=== PATIENT | male | born 1960 | race Asian ===

== ENCOUNTER 2016-12-25 20:46 | Emergency (ER) | payer BC, OTHER ==
[~2016-12-25] VITALS: Ht 182.9 cm; Wt 81.6 kg
--- NOTE | 2016-12-25 20:46 | NUR ---
bb ; right sided aching like chest pain since 1430. A/OX4, NO OTHER DISTRESS NOTED. AMBULATORY WITH STEADY GAIT. ON MONITOR AND GOWN. AT BEDSIDE FOR EVAL
--- NOTE | 2016-12-25 21:14 | NUR ---
20G LEFT AC ACCESS, PATENT AND FLUSHING WELL
[2016-12-25 21:16] LABS: BASOPHILS # (AUTO) 0.1 /CMM (0.0-0.2); BASOPHILS % (AUTO) 0.5 % (0.0-2.0); EOSINOPHILS % (AUTO) 0.5 % (0.0-6.0); HEMATOCRIT 39 % (39-51); HEMOGLOBIN 12.9 g/dL (13.5-17.5); LYMPHOCYTES # (AUTO) 3.2 /CMM (0.8-4.8); LYMPHOCYTES % (AUTO) 31.4 % (20.0-44.0); MEAN CORPUSCULAR HEMOGLOBIN 30 PG (26.0-33.0); MEAN CORPUSCULAR HGB CONC 33 g/dl (31.0-36.0); MEAN CORPUSCULAR VOLUME 89 fL (80-96); MONOCYTES # (AUTO) 0.8 /CMM (0.1-1.30); MONOCYTES % (AUTO) 8.1 % (2.0-12.0); NEUTROPHILS % (AUTO) 59.5 % (43.0-81.0); PLATELET COUNT (AUTO) 206 /CMM (150-450); RDW COEFFICIENT OF VARIATION 12.9 (11.5-15.0); RED BLOOD CELL COUNT(AUTO) 4.38 MIL/uL (4.5-6.0); WHITE BLOOD COUNT (AUTO) 10.1 K/uL (4.3-11.0)
[2016-12-25 21:35] LABS: TROPONIN I < 0.017 ng/mL (0.00-0.056)
[2016-12-25 21:40] LABS: INR 0.96 (0.87-1.13); PARTIAL THROMBOPLASTIN TIME 26 SEC (23-34)
[2016-12-25 21:41] LABS: B-TYPE NATRIURETIC PEPTIDE 15 PG/ML (0-125); CALCIUM, SERUM 8.8 mg/dL (8.5-10.1); CARBON DIOXIDE 28 mmol/L (21-32); CHLORIDE 101 mmol/L (98-107); CREATININE 1.1 mg/dL (0.6-1.3); GLUCOSE 254 mg/dL (74-106); POTASSIUM 4.4 mmol/L (3.5-5.1); SODIUM SERUM 137 mmol/L (136-145)
[2016-12-25 21:49] LABS: D-DIMER < 0.19 mg/L(FEU (0.17-0.50)
[2016-12-25 21:51] LABS: UREA NITROGEN, BLOOD 19 mg/dL (7-18)
--- NOTE | 2016-12-25 23:55 | NUR ---
DISCHARGE INSTRUCTIONS PROVIDED. NO CURRENT COMPLAINTS OF CHEST PAIN. IV ACCESS REMOVED AND PRESSURE DSG APPLIED. ALL QUESTIONS ANSWERED.
[2016-12-25 23:57] VITALS: BP 156/96
== END 2016-12-25 23:59 | disposition home or self-care (01) ==
LOC: ER 20:48
DX: R07.89 Other chest pain (principal); E11.9 Type 2 diabetes mellitus without complications
CPT/HCPCS: 36415; 71010; 80048; 82550; 83880; 84484 ×2; 85025; 85378; 85730; 93005 ×2; 99285; A4606; Z7610

== ENCOUNTER 2018-02-08 09:02 | Outpatient (CLI) | payer BC | END 2018-02-08 23:59 | disposition home or self-care (01) | LOC: US 09:02 | PROVIDERS: ATTEND Family Medicine | DX: N28.89 Other specified disorders of kidney and ureter (principal); E11.21 Type 2 diabetes mellitus with diabetic nephropathy; E11.22 Type 2 diabetes mellitus with diabetic chronic kidney disease; N18.9 Chronic kidney disease, unspecified | CPT/HCPCS: 76770-TC ==

== ENCOUNTER 2018-04-17 08:41 | Outpatient (CLI) | payer BC ==
[2018-04-17 09:30] LABS: BASOPHILS % (AUTO) 0.7 % (0.0-2.0); EOSINOPHILS % (AUTO) 0.9 % (0.0-6.0); HEMATOCRIT 40 % (39-51); HEMOGLOBIN 13.4 g/dL (13.5-17.5); LYMPHOCYTES # (AUTO) 2.9 /CMM (0.8-4.8); LYMPHOCYTES % (AUTO) 43.7 % (20.0-44.0); MEAN CORPUSCULAR HGB CONC 33 g/dl (31.0-36.0); MEAN CORPUSCULAR VOLUME 91 fL (80-96); MONOCYTES # (AUTO) 0.5 /CMM (0.1-1.30); MONOCYTES % (AUTO) 7.9 % (2.0-12.0); NEUTROPHILS # (AUTO) 3.1 /CMM (1.8-8.9); NEUTROPHILS % (AUTO) 46.8 % (43.0-81.0); PLATELET COUNT (AUTO) 219 /CMM (150-450); RED BLOOD CELL COUNT(AUTO) 4.42 MIL/uL (4.5-6.0); WHITE BLOOD COUNT (AUTO) 6.7 K/uL (4.3-11.0)
[2018-04-17 09:59] LABS: BILIRUBIN,TOTAL 0.4 mg/dL (0.2-1.0); CALCIUM, SERUM 9.5 mg/dL (8.5-10.1); CREATININE 0.9 mg/dL (0.6-1.3); POTASSIUM 4.8 mmol/L (3.5-5.1); TOTAL PROTEIN, SERUM 8.1 g/dL (6.4-8.2)
[2018-04-17 10:11] LABS: FREE PSA 0.35 ng/mL (0.00-45); PROSTATE SPECIFIC ANTIGEN SCR 1.83 ng/mL (0.00-4.00)
== END 2018-04-17 23:59 | disposition home or self-care (01) ==
LOC: LAB 08:41
DX: N13.5 Crossing vessel and stricture of ureter without hydronephrosis (principal)
CPT/HCPCS: 36415; 80053-TC; 84153-TC; 84154-TC; 85025-TC

== ENCOUNTER 2018-07-17 11:45 | Inpatient (IN) | payer BC, OTHER ==
[~2018-07-17] VITALS: Ht 182.9 cm; Wt 79.4 kg
[2018-07-17 13:23] LABS: APPEARANCE,URINE Clear (CLEAR); BILIRUBIN,URINE Negative (NEGATIVE); BLOOD, URINE Negative Ery/uL (NEGATIVE); COLOR,URINE Yellow (YELLOW); KETONES,URINE Negative (NEGATIVE); LEUKOCYTE ESTERASE ,URINE Negative (NEGATIVE); NITRITE, URINE Negative (NEGATIVE); PROTEIN,URINE 30 mg/dl (NEGATIVE); UGLUCOSE Negative (NEGATIVE); UROBILINOGEN,URINE 0.2 EU/dL (0.2)
[2018-07-17 13:37] LABS: BACTERIA,URINE None seen /HPF (None Seen); SQUAMOUS EPITHELIAL CELL,UR Rare /HPF (None Seen)
[2018-07-17 13:38] LABS: RBC,URINE 0-2 /HPF (0-2); WBC,URINE 0-2 /HPF (0-3)
[2018-07-17 15:25] LABS: BASOPHILS # (AUTO) 0.1 /CMM (0.0-0.2); BASOPHILS % (AUTO) 0.9 % (0.0-2.0); EOSINOPHILS % (AUTO) 1.1 % (0.0-6.0); HEMATOCRIT 41 % (39-51); HEMOGLOBIN 13.6 g/dL (13.5-17.5); LYMPHOCYTES # (AUTO) 2.9 /CMM (0.8-4.8); MEAN CORPUSCULAR HGB CONC 34 g/dl (31.0-36.0); MEAN CORPUSCULAR VOLUME 92 fL (80-96); MONOCYTES # (AUTO) 0.4 /CMM (0.1-1.30); NEUTROPHILS # (AUTO) 2.7 /CMM (1.8-8.9); PLATELET COUNT (AUTO) 203 /CMM (150-450); RED BLOOD CELL COUNT(AUTO) 4.42 MIL/uL (4.5-6.0); WHITE BLOOD COUNT (AUTO) 6.1 K/uL (4.3-11.0)
[2018-07-17 15:34] LABS: CREATININE 0.9 mg/dL (0.6-1.3); POTASSIUM 4.3 mmol/L (3.5-5.1)
[2018-07-17 15:40] LABS: ALBUMIN 4.1 g/dL (3.4-5.0); BILIRUBIN,TOTAL 0.3 mg/dL (0.2-1.0)
[2018-07-17 18:00] VITALS: BP 132/76
[2018-07-17] MEDS ORDERED: LIDOCAINE 2% JEL UROJET 10 ML MM ONE ×2 (18:00→19:30)
[2018-07-17] MEDS ORDERED: Z GUARD REMEDY 2 OZ OINT TP PRN (19:30)
[2018-07-17] MEDS ORDERED: ZOLPIDEM TARTRATE 5 MG TABLET PO PRN (19:30)
[2018-07-17] MEDS ORDERED: ONDANSETRON HCL/PF 4 MG/2 ML VIAL IVP PRN (19:30)
[2018-07-17] MEDS ORDERED: ACETAMINOPHEN 325 MG TABLET PO PRN (19:30)
[2018-07-17] MEDS ORDERED: METF-442 PO (19:40)
[2018-07-17] MEDS ORDERED: LOSA50TA39 PO (19:41)
[2018-07-17 20:00] VITALS: BP 147/85
[2018-07-17 20:16] VITALS: BP 147/85
[2018-07-17] MEDS ORDERED: CEFTRIAXONE 1 G in IV D5W 50 ML IV ONE (21:00)
[2018-07-17 21:12] LABS: FREE PSA 0.29 ng/mL (0.00-45); PROSTATE SPECIFIC ANTIGEN SCR 1.38 ng/mL (0.00-4.00)
[2018-07-17] MEDS ORDERED: CEFTRIAXONE 1 G VIAL ONE (21:34)
[2018-07-18 06:46] LABS: THYROID STIMULATING HORMONE 0.589 uIU/mL (0.358-3.74)
[2018-07-18 08:00] VITALS: BP_SYST 132; BP_SYST 152; BP_DIAS 87
== END 2018-07-18 13:45 | disposition home or self-care (01) | DRG 697 ==
LOC: ER 11:54 → MEDSG2 16:47
PROVIDERS: ADMIT Nurse Practitioner Acute Care; ATTEND Nurse Practitioner Acute Care
DX: N35.919 Unspecified urethral stricture, male, unspecified site (principal); E11.65 Type 2 diabetes mellitus with hyperglycemia; I10 Essential (primary) hypertension; Z87.440 Personal history of urinary (tract) infections; Z79.84 Long term (current) use of oral hypoglycemic drugs; Z79.899 Other long term (current) drug therapy; R33.9 Retention of urine, unspecified
CPT/HCPCS: 36415; 76856-TC; 80053-TC; 80061-TC; 81000-TC; 82962-TC; 84153-TC; 84154-TC; 84443-TC; 85025-TC; 87081-TC; 87086-TC; G0378; J0696; J3490; J7050; J7060

== ENCOUNTER 2019-09-06 | Emergency (ER) | payer BC ==
[~2019-09-06] VITALS: Ht 182.9 cm; Wt 81.6 kg
[~2019-09-06] MED LIST: LOSA50TA39 PO; METF-442 PO
[2019-09-06 01:04] LABS: APPEARANCE,URINE Cloudy (CLEAR); BILIRUBIN,URINE SMALL (NEGATIVE); BLOOD, URINE Large Ery/uL (NEGATIVE); COLOR,URINE Red (YELLOW); KETONES,URINE 15 (NEGATIVE); LEUKOCYTE ESTERASE ,URINE Trace (NEGATIVE); NITRITE, URINE Negative (NEGATIVE); PH,URINE 6.5 (5.0-8.0); PROTEIN,URINE >=300 mg/dl (NEGATIVE); UGLUCOSE Negative (NEGATIVE)
[2019-09-06 01:26] LABS: BACTERIA,URINE Few /HPF (None Seen); RBC,URINE TOO NUMEROUS TO COUN /HPF (0-2); SQUAMOUS EPITHELIAL CELL,UR Rare /HPF (None Seen); WBC,URINE 21-50 /HPF (0-3)
[2019-09-06 01:53] LABS: BASOPHILS # (AUTO) 0.1 /CMM (0.0-0.2); BASOPHILS % (AUTO) 0.7 % (0.0-2.0); EOSINOPHILS % (AUTO) 0.6 % (0.0-6.0); HEMATOCRIT 41 % (39-51); HEMOGLOBIN 13.5 g/dL (13.5-17.5); LYMPHOCYTES # (AUTO) 3.5 /CMM (0.8-4.8); LYMPHOCYTES % (AUTO) 23.7 % (20.0-44.0); MEAN CORPUSCULAR HGB CONC 33 g/dl (31.0-36.0); MEAN CORPUSCULAR VOLUME 91 fL (80-96); MONOCYTES % (AUTO) 6.9 % (2.0-12.0); NEUTROPHILS # (AUTO) 9.9 /CMM (1.8-8.9); NEUTROPHILS % (AUTO) 68.1 % (43.0-81.0); PLATELET COUNT (AUTO) 240 /CMM (150-450); RED BLOOD CELL COUNT(AUTO) 4.53 MIL/uL (4.5-6.0); WHITE BLOOD COUNT (AUTO) 14.6 K/uL (4.3-11.0)
[2019-09-06 03:23] LABS: ALBUMIN 3.9 g/dL (3.4-5.0); BILIRUBIN,TOTAL 0.4 mg/dL (0.2-1.0); CREATININE 1.2 mg/dL (0.6-1.3); POTASSIUM 4.9 mmol/L (3.5-5.1)
[2019-09-06 03:37] VITALS: BP 139/87
[2019-09-06 04:09] LABS: CALCIUM, SERUM 9.9 mg/dL (8.5-10.1)
[2019-09-06] MEDS ORDERED: ASPIRIN 81 MG TAB.CHEW ONE (04:11)
[2019-09-06] MEDS ORDERED: ASPIRIN 81 MG TAB.CHEW PO ONE (04:12)
--- NOTE | 2019-09-06 04:20 | NUR ---
Patient does not wish to proceed with medical care recommended by Dr. Fraser. Patient given information related to possible complications, up to and including , which could occur as a result of leaving the hospital at this time. Patient verbalizes understanding of risks involved due to leaving against medical advice. Patient has signed AMA form.
== END 2019-09-06 04:20 | disposition left against medical advice (07) ==
LOC: ER 00:17
DX: R94.31 Abnormal electrocardiogram [ECG] [EKG] (principal); H61.22 Impacted cerumen, left ear; N39.0 Urinary tract infection, site not specified; R79.89 Other specified abnormal findings of blood chemistry; R00.0 Tachycardia, unspecified; E11.9 Type 2 diabetes mellitus without complications; Z98.890 Other specified postprocedural states; Z79.899 Other long term (current) drug therapy
CPT/HCPCS: 36415; 71045-TC; 80053-TC; 81000-TC; 84484-TC; 85025-TC; 87086-TC

== ENCOUNTER 2019-09-16 06:14 | Inpatient (IN) | payer BC ==
[2019-09-16] VITALS (25 sets, daily range): BP systolic 118–148; BP diastolic 28–95
[~2019-09-16] VITALS: Ht 182.9 cm; Wt 81.6 kg
[2019-09-16] MEDS ORDERED: VERAPAMIL HCL IV 5 MG/2 ML VIAL ONE (06:49)
[2019-09-16] MEDS ORDERED: IV NS 0.9% 500 ML IV ONE ×2 (06:49→09:30)
[2019-09-16] MEDS ORDERED: IV NS 0.9% 50 ML IV ONE (06:49)
[2019-09-16] MEDS ORDERED: IV SET PRIMARY PUMP SET 1 EA INFUS.SET MC ONE (06:49)
[2019-09-16] MEDS ORDERED: IODIXANOL 150 ML IV ONE (06:49)
[2019-09-16] MEDS ORDERED: NITROGLYCERIN ICAR 1,000 MCG/10 ML VIAL ICAR ONE (06:50)
[2019-09-16] MEDS ORDERED: LIDOCAINE HCL/PF 1% 30 ML SDV ONE (06:50)
[2019-09-16 07:06] LABS: BASOPHILS # (AUTO) 0.1 /CMM (0.0-0.2); BASOPHILS % (AUTO) 0.7 % (0.0-2.0); EOSINOPHILS % (AUTO) 0.8 % (0.0-6.0); HEMATOCRIT 40 % (39-51); LYMPHOCYTES # (AUTO) 4.3 /CMM (0.8-4.8); LYMPHOCYTES % (AUTO) 50.4 % (20.0-44.0); MEAN CORPUSCULAR HGB CONC 33 g/dl (31.0-36.0); MEAN CORPUSCULAR VOLUME 93 fL (80-96); MONOCYTES # (AUTO) 0.7 /CMM (0.1-1.30); MONOCYTES % (AUTO) 8.5 % (2.0-12.0); NEUTROPHILS # (AUTO) 3.4 /CMM (1.8-8.9); NEUTROPHILS % (AUTO) 39.6 % (43.0-81.0); PLATELET COUNT (AUTO) 243 /CMM (150-450); RED BLOOD CELL COUNT(AUTO) 4.32 MIL/uL (4.5-6.0); WHITE BLOOD COUNT (AUTO) 8.5 K/uL (4.3-11.0)
[2019-09-16 07:11] LABS: CALCIUM, SERUM 9.6 mg/dL (8.5-10.1); CREATININE 1.1 mg/dL (0.6-1.3); POTASSIUM 5.2 mmol/L (3.5-5.1)
[2019-09-16] MEDS ORDERED: FENTANYL PF 100MCG/2ML AMPUL ONE (07:16)
[2019-09-16] MEDS ORDERED: MIDAZOLAM HCL 2 MG/2ML VIAL ONE (07:17)
[2019-09-16] MEDS ORDERED: HEPARIN SODIUM, PORCINE 1,000 UNIT/ML VIAL ONE (07:17)
[2019-09-16 07:22] LABS: BILIRUBIN,TOTAL 0.5 mg/dL (0.2-1.0)
[2019-09-16] MEDS ORDERED: ASPIRIN 325 MG TABLET ONE (08:48)
[2019-09-16] MEDS ORDERED: ENOXAPARIN SODIUM 80 MG/0.8 ML DISP.SYRIN SQ SCH (09:00)
[2019-09-16] MEDS ORDERED: METOPROLOL SUCCINATE 50 MG TAB.SR.24H PO SCH (09:00)
--- NOTE | 2019-09-16 09:00 | NUR ---
ICU/RN ADMITTING NOTES,AM RECEIVED REPORT FROM FARIBA RN. PT TRANSFERRED TO [facility] [place] VIA [facility] [place] S/P CARDIAC CATH. PT ALERT, AWAKE, ORIENTED, FOLLOWS COMMANDS, ON ROOM AIR, NO ACUTE DISTRESS NOTED. RIGHT RADIAL TR BAND NOTED, NO S/S OF ACUTE BLEEDING NOTED (10CC AIR IN BAND) WILL DEFLATE PER PROTOCOL. PER PT IS TO BE TRANSFERRED TO [facility] FOR CABG. AT THIS TIME PT STATES HE NEEDS MORE TIME TO DECIDE. RISKS AND BENEFITS EXPLAINED TO PT. WILL CONTINUE TO EDUCATE. CASE MANAGEMENT WORKING ON TRANSFER. ALL SAFETY MEASURES TAKEN, BED IN LOW POSITION, SIDE RAILS UP, CALL LIGHT WITHIN REACH. WILL CONTINUE CARE.
[2019-09-16] MEDS ORDERED: METF-440 MT (09:51)
[2019-09-16] MEDS ORDERED: OLME20TA23 MT (09:51)
[2019-09-16] MEDS ORDERED: ATOR40TA MT (09:51)
[2019-09-16] MEDS ORDERED: NITR0.4T48 SL (09:51)
[2019-09-16] MEDS ORDERED: METO-357 MT (09:51)
[2019-09-16] MEDS ORDERED: DEXTROSE 50%-WATER 50 ML DISP.SYRIN IV PRN (12:30)
[2019-09-16] MEDS ORDERED: *INSULIN REGULAR(HUMULIN R)HUM 100 UNIT/ML VIAL SQ PRN (12:30)
[2019-09-16] MEDS ORDERED: INSULIN REGULAR, HUMAN 100 UNIT/ML 3 ML VIAL SQ PRN (12:30)
[2019-09-16] MEDS ORDERED: BLOOD SUGAR DIAGNOSTIC 1 EACH STRIP VI SCH (12:30)
--- NOTE | 2019-09-16 13:45 | NUR ---
ICU/RN: TR BAND 1030:3CC AIR REMOVED, NO S/S OF BLEEDING NOTED 1117:3CC AIR REMOVED, NO S/S OF BLEEDING NOTED 1135:4CC AIR REMOVED, NO S/S OF BLEEDING NOTED 1330: TR BAND REMOVED, NO S/S OF BLEEDING NOTED. TEGADERM PLACED. WILL CONTINUE TO MONITOR AND ASSESS SITE. EDUCATED PT TO KEEP ARM STRAIGHT.
--- NOTE | 2019-09-16 14:47 | NUR ---
ICU/RN: PT CONTINUES TO REFUSE TRANSFER. WISHES TO GO AMA. FAMILY IN ENCOURAGING AND EXPLAINING IMPORTANCE OF THE TRANSFER. MYSELF AND LEO ALSO EDUCATING RISK VS BENEFITS OF TRANSFER AND PROCEDURE.
[2019-09-16] MEDS ORDERED: CLOPIDOGREL BISULFATE 75 MG TABLET PO ONE (15:25)
[2019-09-16] MEDS ORDERED: CLOPIDOGREL BISULFATE 300 MG TABLET PO ONE (15:30)
--- NOTE | 2019-09-16 15:43 | NUR ---
ICU/RN: PT EDUCATED REGARDING THE IMPORTANCE OF THE SURGICAL PROCEDURE AND BEING TRANSFERRED TO [facility]. DESPITE ALL THE EDUCATION PT DECIDED TO GO AMA. AND DAUGHTER OF PT AWARE. ALL BELONGINGS SENT WITH PT, APPROPRIATE FORMS SIGNED.
[2019-09-16] MEDS ORDERED: ATORVASTATIN 40 MG TABLET PO SCH (22:00)
[2019-09-17] MEDS ORDERED: ASPIRIN 81 MG TAB.CHEW PO SCH (09:00)
== END 2019-09-16 16:07 | disposition left against medical advice (07) | DRG 282 ==
LOC: CATHLAB 06:14 → ICU 09:31
PROVIDERS: ADMIT Internal Medicine Interventional Cardiology; ATTEND Internal Medicine Interventional Cardiology
DX: I21.4 Non-ST elevation (NSTEMI) myocardial infarction (principal); I25.10 Atherosclerotic heart disease of native coronary artery without angina pectoris; I25.5 Ischemic cardiomyopathy; I10 Essential (primary) hypertension; E11.9 Type 2 diabetes mellitus without complications
CPT/HCPCS: 36415; 80053-TC; 82962-TC; 84484-TC; 85025-TC; 85610-TC; 85730-TC; A4216; C1887; G0378; G0500; J1644; J1650; J1815; J2250; J3010; J3490; J7040; Q9967

== ENCOUNTER 2019-10-02 21:26 | Inpatient (IN) | payer BC ==
[~2019-10-02] VITALS: Ht 182.9 cm; Wt 78.0 kg
[~2019-10-02 21:26] MED LIST changes: +ATOR40TA MT; -LOSA50TA39 PO; +METF-440 MT; -METF-442 PO; +METO-357 MT; +NITR0.4T48 SL; +OLME20TA23 MT
--- NOTE | 2019-10-02 21:30 | NUR ---
PT AAOX4. BIB FAMILY C/O SYNCOPE, OCCIPITAL SCALP LAC. PT REPORT HX OF CABG 09/17/19. NO ACUTE DISTRESS NOTED. PT STATED +KO. PLACED ON MONITOR AND PULSE OX. IV LINE INITIATED ON RAC 20G. LABS DRAWN AND SENT TO LAB. AWAITING MD FOR EVAL. WILL CONTINUE TO MONITOR.
[2019-10-02 22:02] LABS: BASOPHILS # (AUTO) 0.1 /CMM (0.0-0.2); BASOPHILS % (AUTO) 0.8 % (0.0-2.0); EOSINOPHILS % (AUTO) 2.1 % (0.0-6.0); HEMATOCRIT 30 % (39-51); HEMOGLOBIN 9.6 g/dL (13.5-17.5); LYMPHOCYTES # (AUTO) 2.6 /CMM (0.8-4.8); LYMPHOCYTES % (AUTO) 28.7 % (20.0-44.0); MEAN CORPUSCULAR HGB CONC 33 g/dl (31.0-36.0); MEAN CORPUSCULAR VOLUME 90 fL (80-96); MONOCYTES % (AUTO) 11.1 % (2.0-12.0); NEUTROPHILS # (AUTO) 5.2 /CMM (1.8-8.9); NEUTROPHILS % (AUTO) 57.3 % (43.0-81.0); PLATELET COUNT (AUTO) 348 /CMM (150-450); RED BLOOD CELL COUNT(AUTO) 3.28 MIL/uL (4.5-6.0); WHITE BLOOD COUNT (AUTO) 9.1 K/uL (4.3-11.0)
[2019-10-02 22:11] LABS: CARBON DIOXIDE 28 mmol/L (21-32); CHLORIDE 97 mmol/L (98-107); CREATININE 1.1 mg/dL (0.6-1.3); GLUCOSE 195 mg/dL (74-106); POTASSIUM 4.7 mmol/L (3.5-5.1); SODIUM SERUM 133 mmol/L (136-145); UREA NITROGEN, BLOOD 23 mg/dL (7-18)
--- NOTE | 2019-10-02 22:15 | NUR ---
XRAY AT BEDSIDE
[2019-10-02] MEDS ORDERED: CLOP75TA15 PO (22:52)
[2019-10-02] MEDS ORDERED: ASPI-1169 PO (22:52)
--- NOTE | 2019-10-02 22:53 | NUR ---
PER PT'S DAUGHTER PT TAKES PLAVIX 75MG.
--- NOTE | 2019-10-02 22:53 | NUR ---
AT BEDSIDE SPEAKING TO PT.
--- NOTE | 2019-10-02 23:23 | NUR ---
MED LIST UPDATED.
--- NOTE | 2019-10-02 23:23 | NUR ---
RINA THACKER AT BEDSIDE.
--- NOTE | 2019-10-02 23:36 | NUR ---
REPORT GIVEN TO JACKI DRIVER FOR BENITEZ
[2019-10-03] MEDS ORDERED: HYDROCODONE/APAP 5/325MG 1 EACH TABLET PO PRN
[2019-10-03] MEDS ORDERED: ACETAMINOPHEN 325 MG TABLET PO PRN
[2019-10-03] MEDS ORDERED: IV NS 0.9% 1,000 ML IV PRN
[2019-10-03] MEDS ORDERED: ONDANSETRON HCL/PF 4 MG/2 ML VIAL IVP PRN
[2019-10-03] MEDS ORDERED: ZOLPIDEM TARTRATE 5 MG TABLET PO PRN
[2019-10-03] MEDS ORDERED: Z GUARD REMEDY 2 OZ OINT TP PRN
[2019-10-03] MEDS ORDERED: MAGNESIUM HYDROXIDE 30 ML UDC PO PRN
--- NOTE | 2019-10-03 00:29 | NUR ---
PT TRANSFERED PER ACLS PROTOCOL
[2019-10-03 00:45] VITALS: BP 127/77
[2019-10-03] MEDS: METFORMIN 500 MG TABLET PO SCH ×2 (00:55→09:13)
[2019-10-03] MEDS: CLOPIDOGREL BISULFATE 75 MG TABLET PO SCH ×2 (00:55→09:14)
--- NOTE | 2019-10-03 01:50 | NUR ---
COLLAR PACKER ADMITTING NOTES RECEIVED PATIENT, TRANSPORTED FROM ER VIA GURNEY, CALM, DENIES PAIN OR DISCOMFORT AT THIS TIME, NO ACUTE SIGNS OF RESPIRATORY OR CARDIAC DISTRESS BREATHING EVEN AND UNLABORED. ORIENTED TO UNIT / ROOM AND USE OF CALL LIGHT, SAFETY MEASURES IN PLACE, IV ACCESS INTACT AND PATENT, ASPIRATION PRECAUTION EMPHASIZED, CONNECTED TO TELE MONITOR READS SINUS 80s, REPOSITIONED FOR COMFORT, INITIAL PHYSICAL ASSESSMENT INITIATED, ADMISSION PROCESS INITIATED. SOME INFORMATIONS OBTAINED FROM PATIENT'S DAUGHTER MARTHA ( [phone] ). ALL NEEDS ANTICIPATED. WILL CONTINUE TO MONITOR ACCORDINGLY.
[2019-10-03] MEDS ORDERED: AMLO10TA7 PO (01:59)
[2019-10-03 04:00] VITALS: BP 141/75
[2019-10-03 04:55] VITALS: BP 141/75
[2019-10-03] MEDS ORDERED: CARV6.252 PO (05:06)
--- NOTE | 2019-10-03 06:29 | NUR ---
RN NOTES ALL NEEDS ATTENDED AND MET, ABLE TO REST AND SLEPT AT INTERVALS, SAFETY MEASURES IN PLACE, DVT PUMP APPLIED, PATIENT REFUSED, IV ACCESS INTACT AND PATENT, CALL LIGHT WITH IN EASY REACH, ASPIRATION PRECAUTION EMPHASIZED, URINAL AT BEDSIDE, ENCOURAGE TO STAY BED REST FOR SAFETY. ALL NEEDS ANTICIPATED, WILL ENDORSE TO AM NURSE FOR CONTINUITY OF CARE.
[2019-10-03 08:00] VITALS: BP_SYST 114; BP_SYST 116; BP_SYST 128; BP_DIAS 62; BP_DIAS 70; BP_DIAS 82
[2019-10-03] MEDS ORDERED: ASPIRIN 81 MG TAB.CHEW PO SCH (09:00)
[2019-10-03] MEDS ORDERED: ATORVASTATIN 40 MG TABLET PO SCH (09:00)
[2019-10-03] MEDS ORDERED: CARVEDILOL 6.25 MG TABLET PO SCH (09:00)
--- NOTE | 2019-10-03 09:13 | NUR ---
ROLLWAY WORKER NOTES-- LIPITOR NOT GIVEN THIS AM. PER ORDER, GIVEN HS.
[2019-10-03 10:18] LABS: MAGNESIUM 1.8 mg/dL (1.8-2.4); PHOSPHORUS 3.8 mg/dL (2.5-4.9)
--- NOTE | 2019-10-03 12:03 | NUR ---
HAT AND CAP SEWER NOTE PT DISCHARGED TO HOME, SELF CARE IN MEDICALLY STABLE CONDITION. PT IS A/OX4, AFEBRILE. RESPIRATIONS ARE EVEN AND UNLABORED, NOT IN ANY ACUTE DISTRESS NOTED. DENIES ANY PAIN, NO C/O OF CHEST PAIN, DIZZINESS. TOLERATED PO W/ NO C/O N/V. PICTURES TAKEN TO OCCIPITAL HEAD, FOREHEAD AND CHEST. IV ACCESS REMOVED AND ID BAND REMOVED. EXPLAINED DISCHARGE PAPERWORK TO PT AND DTR MARTHA WITH VERBAL AND WRITTEN UNDERSTANDING, INCLUDING MEDICATIONS AND FOLLOW UP WITH DR. CROWE AND THORACIC SURGEON. ALL BELONGINGS ACCOUNTED FOR AND SENT WITH PT. PT LEFT IN MEDICALLY STABLE CONDITION ACCOMPANIED BY DTR MARTHA AND .
[2019-10-03 21:20] LABS: IRON, SERUM 24 ug/dl (50-175); TOTAL IRON BINDING CAPACITY 252 ug/dl (250-450)
== END 2019-10-03 12:00 | disposition home or self-care (01) | DRG 641 ==
LOC: ER 21:26 → TELE 23:16
PROVIDERS: ADMIT Nurse Practitioner Acute Care; ATTEND Nurse Practitioner Acute Care
DX: E86.0 Dehydration (principal); N17.9 Acute kidney failure, unspecified; E87.1 Hypo-osmolality and hyponatremia; E11.9 Type 2 diabetes mellitus without complications; I10 Essential (primary) hypertension; D64.9 Anemia, unspecified; K21.9 Gastro-esophageal reflux disease without esophagitis; Z95.1 Presence of aortocoronary bypass graft; S01.01XA Laceration without foreign body of scalp, initial encounter; W18.30XA Fall on same level, unspecified, initial encounter; Y92.009 Unspecified place in unspecified non-institutional (private) residence as the place of occurrence of the external cause; N35.919 Unspecified urethral stricture, male, unspecified site; Z79.82 Long term (current) use of aspirin; Z79.84 Long term (current) use of oral hypoglycemic drugs; Z79.02 Long term (current) use of antithrombotics/antiplatelets; Z79.899 Other long term (current) drug therapy; I25.10 Atherosclerotic heart disease of native coronary artery without angina pectoris; I25.5 Ischemic cardiomyopathy; E78.5 Hyperlipidemia, unspecified
CPT/HCPCS: 36415; 70450-TC; 71045-TC; 80048-TC; 80061-TC; 83540-TC; 83735-TC; 84100-TC; 84484-TC; 85025-TC; 85730-TC; 87081-TC; G0378; J7030

== ENCOUNTER 2019-10-16 10:58 | Outpatient (CLI) | payer BC ==
[~2019-10-16 10:58] MED LIST changes: +AMLO10TA7 PO; +ASPI-1169 PO; +CARV6.252 PO; +CLOP75TA15 PO; -METO-357 MT; -OLME20TA23 MT
== END 2019-10-16 23:59 | disposition home or self-care (01) ==
LOC: CT 10:58
PROVIDERS: ATTEND Family Medicine
DX: R20.2 Paresthesia of skin (principal)
CPT/HCPCS: 72125-TC

== ENCOUNTER 2020-11-05 10:22 | Outpatient (CLI) | payer BC ==
[~2020-11-05 10:22] MED LIST changes: +AMLO-213 PO; -AMLO10TA7 PO
== END 2020-11-05 23:59 | disposition home or self-care (01) ==
LOC: RAD 10:22
PROVIDERS: ATTEND Family Medicine
DX: I25.10 Atherosclerotic heart disease of native coronary artery without angina pectoris (principal); M47.819 Spondylosis without myelopathy or radiculopathy, site unspecified; Z95.1 Presence of aortocoronary bypass graft; Z87.891 Personal history of nicotine dependence
CPT/HCPCS: 71250-TC

== ENCOUNTER 2020-12-04 09:20 | Outpatient (CLI) | payer BC ==
[2020-12-04 10:32] LABS: BASOPHILS # (AUTO) 0.1 K/uL (0.0-0.2); BASOPHILS % (AUTO) 0.8 % (0.0-2.0); EOSINOPHILS % (AUTO) 1.4 % (0.0-6.0); HEMATOCRIT 41 % (39-51); HEMOGLOBIN 13.5 g/dL (13.5-17.5); LYMPHOCYTES # (AUTO) 2.5 K/uL (0.8-4.8); MEAN CORPUSCULAR HGB CONC 33 g/dl (31.0-36.0); MEAN CORPUSCULAR VOLUME 92 fL (80-96); MONOCYTES # (AUTO) 0.6 K/uL (0.1-1.30); MONOCYTES % (AUTO) 8.2 % (2.0-12.0); NEUTROPHILS # (AUTO) 3.9 K/uL (1.8-8.9); NEUTROPHILS % (AUTO) 54.6 % (43.0-81.0); PLATELET COUNT (AUTO) 233 K/uL (150-450); RED BLOOD CELL COUNT(AUTO) 4.47 MIL/uL (4.5-6.0); WHITE BLOOD COUNT (AUTO) 7.2 K/uL (4.3-11.0)
[2020-12-04 10:38] LABS: BILIRUBIN,URINE NEGATIVE (NEGATIVE); COLOR,URINE YELLOW (YELLOW); LEUKOCYTE ESTERASE ,URINE SMALL (NEGATIVE); NITRITE, URINE POSITIVE (NEGATIVE); PROTEIN,URINE NEGATIVE (NEGATIVE); UGLUCOSE >=1000 mg/dL (NEGATIVE); UROBILINOGEN,URINE 0.2 EU/dL (0.2)
[2020-12-04 10:45] LABS: ALBUMIN 4.2 g/dL (3.4-5.0); BILIRUBIN,TOTAL 0.5 mg/dL (0.2-1.0); CALCIUM, SERUM 9.2 mg/dL (8.5-10.1); CREATININE 1.1 mg/dL (0.6-1.3); POTASSIUM 4.6 mmol/L (3.5-5.1); TOTAL PROTEIN, SERUM 8.5 g/dL (6.4-8.2)
[2020-12-04 12:30] LABS: BACTERIA,URINE Many /HPF (None Seen); RBC,URINE 0-4 /HPF (0-2); SQUAMOUS EPITHELIAL CELL,UR Few /HPF (None Seen); WBC,URINE 51-80 /HPF (0-3)
[2020-12-04 12:31] LABS: URINE AMORPHOUS URATE Moderate /HPF (None Seen)
[2020-12-04 12:36] LABS: PROSTATE SPECIFIC ANTIGEN SCR 2.28 ng/mL (0.00-4.00)
== END 2020-12-04 23:59 | disposition home or self-care (01) ==
LOC: LAB 09:20
PROVIDERS: ATTEND Urology
DX: E11.9 Type 2 diabetes mellitus without complications (principal); N39.0 Urinary tract infection, site not specified; N35.919 Unspecified urethral stricture, male, unspecified site
CPT/HCPCS: 36415; 80053-TC; 81001; 84153-TC; 85025-TC; 87086-TC

== ENCOUNTER 2021-06-02 09:41 | Outpatient (CLI) | payer BC | END 2021-06-02 23:59 | disposition home or self-care (01) | LOC: LAB 09:41 | PROVIDERS: ATTEND Family Medicine | DX: R31.9 Hematuria, unspecified (principal) | CPT/HCPCS: 87086-TC ==

== ENCOUNTER 2021-09-29 14:56 | Emergency (ER) | payer BC ==
[~2021-09-29] VITALS: Ht 182.9 cm; Wt 79.4 kg
[2021-09-29 15:30] VITALS: BP 136/69
== END 2021-09-29 15:52 | disposition home or self-care (01) ==
LOC: ER 15:11
DX: H69.83 Other specified disorders of Eustachian tube, bilateral (principal); I10 Essential (primary) hypertension; E11.9 Type 2 diabetes mellitus without complications; Z98.890 Other specified postprocedural states; Z79.899 Other long term (current) drug therapy; Z79.82 Long term (current) use of aspirin; Z79.84 Long term (current) use of oral hypoglycemic drugs

== ENCOUNTER 2021-12-20 14:04 | Outpatient (CLI) | payer BC ==
[2021-12-20 15:15] LABS: PROSTATE SPECIFIC ANTIGEN SCR 2.96 ng/mL (0.00-4.00)
== END 2021-12-20 23:59 | disposition home or self-care (01) ==
LOC: LAB 14:04
PROVIDERS: ATTEND Urology
DX: N40.0 Benign prostatic hyperplasia without lower urinary tract symptoms (principal); N52.1 Erectile dysfunction due to diseases classified elsewhere
CPT/HCPCS: 36415; 84153-TC; 84154-TC; 84402; 84403

== ENCOUNTER 2022-05-26 08:37 | Outpatient (CLI) | payer BC | END 2022-05-26 23:59 | disposition home or self-care (01) | LOC: LAB 08:37 | PROVIDERS: ATTEND Urology | DX: N52.1 Erectile dysfunction due to diseases classified elsewhere (principal); N40.0 Benign prostatic hyperplasia without lower urinary tract symptoms | CPT/HCPCS: 36415; 84153-TC ==

== ENCOUNTER 2022-08-17 08:33 | Emergency (ER) | payer BC ==
[~2022-08-17] VITALS: Ht 182.9 cm; Wt 81.6 kg
[2022-08-17 09:03] VITALS: BP 106/69
--- NOTE | 2022-08-17 09:30 | NUR ---
Patient discharged to home in stable condition. Written and verbal after care instructions given. Patient verbalizes understanding of instruction.
== END 2022-08-17 09:30 | disposition home or self-care (01) ==
LOC: ER 08:42
DX: S90.422A Blister (nonthermal), left great toe, initial encounter (principal); I10 Essential (primary) hypertension; E11.9 Type 2 diabetes mellitus without complications; Z98.890 Other specified postprocedural states; Z79.899 Other long term (current) drug therapy; Z79.82 Long term (current) use of aspirin; X58.XXXA Exposure to other specified factors, initial encounter; Y93.89 Activity, other specified; Y92.89 Other specified places as the place of occurrence of the external cause; Y99.8 Other external cause status

== ENCOUNTER 2022-08-23 10:40 | Outpatient (CLI) | payer BC ==
[2022-08-23] MEDS ORDERED: COLLAGENASE 5 GM TUBE UD TP ONE (11:21)
== END 2022-08-23 23:59 | disposition home or self-care (01) ==
LOC: WOU 10:40
PROVIDERS: ATTEND Podiatrist Foot & Ankle Surgery
DX: E11.621 Type 2 diabetes mellitus with foot ulcer (principal); L97.521 Non-pressure chronic ulcer of other part of left foot limited to breakdown of skin; R60.0 Localized edema; Z79.85 Long-term (current) use of injectable non-insulin antidiabetic drugs
CPT/HCPCS: G0463

== ENCOUNTER 2022-11-18 10:10 | Outpatient (CLI) | payer BC ==
[2022-11-18] MEDS ORDERED: COLLAGENASE 5 GM TUBE UD TP ONE (10:33)
== END 2022-11-18 23:59 | disposition home or self-care (01) ==
LOC: WOU 10:10
PROVIDERS: ATTEND Podiatrist Foot & Ankle Surgery
DX: E11.621 Type 2 diabetes mellitus with foot ulcer (principal); L97.522 Non-pressure chronic ulcer of other part of left foot with fat layer exposed; R60.0 Localized edema; Z79.85 Long-term (current) use of injectable non-insulin antidiabetic drugs
CPT/HCPCS: 11042

== ENCOUNTER 2022-12-02 11:07 | Outpatient (CLI) | payer BC | END 2022-12-02 23:59 | disposition home or self-care (01) | LOC: WOU 11:07 | PROVIDERS: ATTEND Podiatrist Foot & Ankle Surgery | DX: E11.621 Type 2 diabetes mellitus with foot ulcer (principal); L97.522 Non-pressure chronic ulcer of other part of left foot with fat layer exposed; R60.0 Localized edema; Z79.85 Long-term (current) use of injectable non-insulin antidiabetic drugs | CPT/HCPCS: 11042 ==

== ENCOUNTER 2022-12-23 10:14 | Outpatient (CLI) | payer BC | END 2022-12-23 23:59 | disposition home or self-care (01) | LOC: WOU 10:14 | PROVIDERS: ATTEND Podiatrist Foot & Ankle Surgery | DX: E11.621 Type 2 diabetes mellitus with foot ulcer (principal); L97.522 Non-pressure chronic ulcer of other part of left foot with fat layer exposed; R60.0 Localized edema; Z95.1 Presence of aortocoronary bypass graft; Z79.85 Long-term (current) use of injectable non-insulin antidiabetic drugs | CPT/HCPCS: 11042 ==

== ENCOUNTER 2023-11-16 09:43 | Outpatient (CLI) | payer BC | END 2023-11-16 23:59 | disposition home or self-care (01) | LOC: RAD 09:43 | PROVIDERS: ATTEND Family Medicine | DX: R07.81 Pleurodynia (principal); Z95.1 Presence of aortocoronary bypass graft | CPT/HCPCS: 71100-TC; 71120-TC ==